=== PATIENT | male | born 1970 | race Caucasian/White ===

== ENCOUNTER 2019-08-26 20:29 | Emergency (ER) | payer SELFPAY ==
[~2019-08-26] VITALS: Ht 167.6 cm; Wt 72.3 kg
[2019-08-26 20:30] VITALS: BP 152/87
[2019-08-26] MEDS ORDERED: DIPH,PERTUSS(ACELL),TET VAC/PF 0.5 ML IM-VACC ONE (21:00)
--- NOTE | 2019-08-26 21:34 | NUR ---
Pt called to be placed in a room. No answer. Checked waiting room, pt not currently in lobby
--- NOTE | 2019-08-26 21:40 | NUR ---
PER REGISTRATION, LOPEZ JONES
== END 2019-08-26 21:50 | disposition left against medical advice (07) ==
LOC: ED 21:00
DX: S60.572A Other superficial bite of hand of left hand, initial encounter (principal); W54.0XXA Bitten by dog, initial encounter; Y93.89 Activity, other specified; Y92.830 Public park as the place of occurrence of the external cause; Y99.8 Other external cause status
CPT/HCPCS: 99281; 99283